=== PATIENT | female | born 1985 | race Caucasian/White ===

== ENCOUNTER 2017-02-10 18:11 | Inpatient (IN) | payer MEDICAID ==
[~2017-02-10] VITALS: Ht 160 cm; Wt 69.8 kg
[~2017-02-10 18:11] MED LIST: DOXYCYCLINE MO100 MG PO; IMO2 PO; LAC PO; ZOFRAN ODT4 MG PO
[2017-02-10 20:09] LABS: BASOPHIL % 0.4 % (0-2); PLATELET COUNT 265 x10^3mcL (130-400); RED CELL DISTRIBUTION WIDTH 13.2 % (11.5-14.5)
[2017-02-10 20:17] LABS: CALCIUM 8.4 mg/dL (8.5-10.1); CARBON DIOXIDE 27.5 mmol/L (21-32); CHLORIDE SERUM 104 mmol/L (98-107); CREATININE SERUM 0.6 mg/dL (0.6-1.0); GFR1 > 60 mL/min; GLUCOSE SERUM 95 mg/dL (74-106); POTASSIUM SERUM 3.6 mmol/L (3.5-5.1); SODIUM SERUM 140 mmol/L (136-145)
[2017-02-10 20:22] LABS: ALBUMIN 3.7 g/dL (3.4-5.0); ALKALINE PHOSPHATASE 55 U/L (46-116); ALT/SGPT 45 U/L (14-59); AMYLASE 46 U/L (25-115); AST/SGOT 43 U/L (15-37); BILIRUBIN TOTAL 0.7 mg/dL (0.20-1.00); LIPASE 166 IU/L (73-393); TOTAL PROTEIN, SERUM 7.1 g/dL (6.4-8.2)
[2017-02-10 23:30] VITALS: BP 118/62
[2017-02-10 23:35] LABS: CHOLESTEROL/HDL RATIO 2.1
[2017-02-10 23:55] LABS: FREE T4 0.97 ng/dL (0.76-1.46); FREE THYROXINE INDEX 2.8 ug/dL (1.4-4.5); T4(THYROXINE) 8.1 ug/dL (4.7-13.3)
[2017-02-11 05:42] VITALS: BP 100/52
[2017-02-11 08:31] VITALS: BP 107/59
[2017-02-11 09:15] LABS: microscopic required? YES; urine erythrocyte NEGATIVE (NEGATIVE)
[2017-02-11 09:26] LABS: AMPHETAMINE QUAL UR NONE DETECTED (NEG <=1000)
[2017-02-11 10:34] LABS: T3 TOTAL 1.24 ng/mL
[2017-02-11 13:28] VITALS: BP 106/51
[2017-02-11 13:48] VITALS: BP 106/51
[2017-02-11 18:11] VITALS: BP 113/66
[2017-02-11 22:25] VITALS: BP 102/57
[2017-02-12 06:01] VITALS: BP 104/60
[2017-02-12 06:16] LABS: BASOPHIL % 0.2 % (0-2); PLATELET COUNT 236 x10^3mcL (130-400); RED CELL DISTRIBUTION WIDTH 13.2 % (11.5-14.5)
[2017-02-12 06:29] LABS: CARBON DIOXIDE 25.1 mmol/L (21-32); CHLORIDE SERUM 107 mmol/L (98-107); CREATININE SERUM 0.5 mg/dL (0.6-1.0); GFR1 > 60 mL/min; GLUCOSE SERUM 94 mg/dL (74-106); PHOSPHOROUS 2.9 mg/dL (2.5-4.9); POTASSIUM SERUM 3.8 mmol/L (3.5-5.1); SODIUM SERUM 140 mmol/L (136-145)
[2017-02-12 09:45] VITALS: BP 106/67
[2017-02-12] MEDS ORDERED: LEVAQUIN250 M1 PO (13:26)
[2017-02-12] MEDS ORDERED: NORCO1 TA2 PO (13:27)
[2017-02-12] MEDS ORDERED: LAC PO (13:27)
[2017-02-12 13:37] VITALS: BP 106/67
== END 2017-02-12 16:00 | disposition home or self-care (01) | DRG 263 ==
LOC: ED 18:11 → DU 21:52 → MU 21:52 → DU 23:29 → MU 02-11 09:12
PROVIDERS: Emergency Medicine; Surgery; ADMIT Family Medicine
PROC: 0FT44ZZ Resection of Gallbladder, Percutaneous Endoscopic Approach (ICD-10-PCS; principal; 2017-02-11 10:30)
DX: K80.00 Calculus of gallbladder with acute cholecystitis without obstruction (principal); K76.0 Fatty (change of) liver, not elsewhere classified; N39.0 Urinary tract infection, site not specified; E78.5 Hyperlipidemia, unspecified; Z68.27 Body mass index [BMI] 27.0-27.9, adult
CPT/HCPCS: 80307; 83880; 84439; 94150; J0295; J1170; J1200; J1885; J2405; J2704; J2710; J3010; J3490; J7030; J7120; Q0092; Q0162

== ENCOUNTER 2017-04-01 21:09 | Emergency (ER) | payer MEDICAID ==
[~2017-04-01 21:09] MED LIST changes: +LEVAQUIN250 M1 PO; +NORCO1 TA2 PO
[2017-04-01 21:57] LABS: BASOPHIL % 0.3 % (0-2); PLATELET COUNT 303 x10^3mcL (130-400); RED CELL DISTRIBUTION WIDTH 13.7 % (11.5-14.5)
[2017-04-01 22:05] LABS: CALCIUM 8.4 mg/dL (8.5-10.1); CARBON DIOXIDE 28.1 mmol/L (21-32); CHLORIDE SERUM 104 mmol/L (98-107); CREATININE SERUM 0.6 mg/dL (0.6-1.0); GFR1 > 60 mL/min; GLUCOSE SERUM 99 mg/dL (74-106); POTASSIUM SERUM 3.8 mmol/L (3.5-5.1); SODIUM SERUM 138 mmol/L (136-145)
[2017-04-01 22:09] LABS: ALBUMIN 3.7 g/dL (3.4-5.0); ALKALINE PHOSPHATASE 56 U/L (46-116); ALT/SGPT 28 U/L (14-59); AMYLASE 53 U/L (25-115); AST/SGOT 20 U/L (15-37); BILIRUBIN TOTAL 0.3 mg/dL (0.20-1.00); LIPASE 183 IU/L (73-393); TOTAL PROTEIN, SERUM 7.1 g/dL (6.4-8.2)
[2017-04-01 22:10] VITALS: BP 118/80
== END 2017-04-02 00:30 | disposition home or self-care (01) ==
LOC: ED 21:09
PROVIDERS: Emergency Medicine
DX: R10.13 Epigastric pain (principal); R11.0 Nausea; Z90.49 Acquired absence of other specified parts of digestive tract
CPT/HCPCS: 36415; J2270